=== PATIENT | female | born 1965 | race Caucasian/White ===

== ENCOUNTER 2021-02-12 09:44 | Day surgery (SDC) | payer OTHER, MEDICARE, SELFPAY ==
[2021-02-05 10:41] VITALS: BMI 25.4
--- NOTE | 2021-02-11 12:08 | HO.ANESPROP2 ---
Documented by User: Raquel Alva NP 02/11/21 12:09 HPI - Anesthesia Eval Consult details Narrative: 55yo F for Upper Endoscopy and Colonoscopy *Multiple Med Allergies POTS - stable, no current tx PMFSH Past Medical History Medical History Anxiety Arthritis Asthma Fibromyalgia GERD (gastroesophageal reflux disease) IBS (irritable bowel syndrome) Panic attacks Postural orthostatic tachycardia syndrome Psoriasis Surgical History Surgical History Hx of breast surgery Hx of cholecystectomy Hx of elbow surgery Hx of shoulder surgery Social History Social History Are you a primary reproductive healthcare assistant to a significant other at home: No Do you presently have visiting nurse or other home services: No Patient Tobacco Use Status: Never used Tobacco Use of substances other than those prescribed or required for medical reasons: No Have you been hit, kicked, punched, or otherwise hurt by someone within the past year? If so, by whom?: No Are you DNR?: No Advance Directives: Yes Advance Directives Information Provided: Yes (informational brochure mailed) Advance Directives on File: Yes Advance Directives Date on File: 02/12/21 Recently lost weight without trying: No Eating poorly because of decreased appetite: No Nutrition Risks: No Nutritional Risk Patient : No FDLMP: 2014 Poor oral hygiene: No Meds Allergies Allergy/AdvReac Type Severity Reaction Status Date / Time pregabalin [From LYRICA] Allergy Severe SWELLING Verified 02/12/21 09:51 TONGUE/LIPS prochlorperazine Allergy Severe BODY Verified 02/12/21 09:51 [From COMPAZINE] RIGIDITY amoxicillin [AMOXICILLIN] Allergy Intermediate FLU LIKE Verified 02/12/21 09:51 SYMPTOMS azithromycin [AZITHROMYCIN] Allergy Intermediate STOMACH Verified 02/12/21 09:51 PAINS diclofenac [DICLOFENAC] Allergy Intermediate RXN TO Verified 02/12/21 09:51 CREAM sulfamethoxazole Allergy Intermediate HOT, ITCHY Verified 02/12/21 09:51 [From BACTRIM] trimethoprim [From BACTRIM] Allergy Intermediate HOT, ITCHY Verified 02/12/21 09:51 Home Medications Medication Instructions Recorded Confirmed Last Taken Type albuterol sulfate 90 mcg/actuation 2 puff INHALATION Q4-6H PRN 02/05/21 02/05/21 Unknown History aerosol inhaler (Ventolin HFA) alprazolam 1 mg tablet,extended 1 mg PO TID 02/05/21 02/05/21 02/12/21 History release 24 hr buspirone 10 mg tablet 10 mg PO TID 02/05/21 02/05/21 02/12/21 History qbttgdehqj-ktsqylbykpblm-eudagkcu 1 tab PO Q4-6H PRN 02/05/21 02/05/21 Unknown History 50 mg-325 mg-40 mg tablet Exam Exam Date and Time: February 11, 2021 1208 Height,Weight and Vital Signs: Height 5 ft Weight 58.967 kg Assessment and Plan Assessment Anesthesia Assessment: Chart Reviewed Documented by User: Irma Priest MD 02/12/21 11:18 PMFSH Past Medical History Medical History Anxiety Arthritis Asthma Fibromyalgia GERD (gastroesophageal reflux disease) IBS (irritable bowel syndrome) Panic attacks Postural orthostatic tachycardia syndrome Psoriasis Surgical History Surgical History Hx of breast surgery Hx of cholecystectomy Hx of elbow surgery Hx of shoulder surgery History of Problems with Anesthesia: No Social History Social History Are you a primary reproductive healthcare assistant to a significant other at home: No Do you presently have visiting nurse or other home services: No Patient Tobacco Use Status: Never used Tobacco Use of substances other than those prescribed or required for medical reasons: No Have you been hit, kicked, punched, or otherwise hurt by someone within the past year? If so, by whom?: No Are you DNR?: No Advance Directives: Yes Advance Directives Information Provided: Yes (informational brochure mailed) Advance Directives on File: Yes Advance Directives Date on File: 02/12/21 Recently lost weight without trying: No Eating poorly because of decreased appetite: No Nutrition Risks: No Nutritional Risk Patient : No FDLMP: 2014 Poor oral hygiene: No Meds Allergies Allergy/AdvReac Type Severity Reaction Status Date / Time pregabalin [From LYRICA] Allergy Severe SWELLING Verified 02/12/21 09:51 TONGUE/LIPS prochlorperazine Allergy Severe BODY Verified 02/12/21 09:51 [From COMPAZINE] RIGIDITY amoxicillin [AMOXICILLIN] Allergy Intermediate FLU LIKE Verified 02/12/21 09:51 SYMPTOMS azithromycin [AZITHROMYCIN] Allergy Intermediate STOMACH Verified 02/12/21 09:51 PAINS diclofenac [DICLOFENAC] Allergy Intermediate RXN TO Verified 02/12/21 09:51 CREAM sulfamethoxazole Allergy Intermediate HOT, ITCHY Verified 02/12/21 09:51 [From BACTRIM] trimethoprim [From BACTRIM] Allergy Intermediate HOT, ITCHY Verified 02/12/21 09:51 Home Medications Medication Instructions Recorded Confirmed Last Taken Type albuterol sulfate 90 mcg/actuation 2 puff INHALATION Q4-6H PRN 02/05/21 02/05/21 Unknown History aerosol inhaler (Ventolin HFA) alprazolam 1 mg tablet,extended 1 mg PO TID 02/05/21 02/05/21 02/12/21 History release 24 hr buspirone 10 mg tablet 10 mg PO TID 02/05/21 02/05/21 02/12/21 History akkfezyfiu-xqfwdybssqfrx-xucmziaj 1 tab PO Q4-6H PRN 02/05/21 02/05/21 Unknown History 50 mg-325 mg-40 mg tablet Exam Airway Mallampati Class: I TM Dist: >3cm Neck ROM: Full Loose/Missing/Broken Teeth: No Heart: RRR Lungs: CTA Assessment and Plan Assessment Anesthesia Assessment: Anesthesia Plan Discussed Final Anesthetic Review History of Problems with Anesthesia: No NPO: Yes ASA Class: II Final Preanesthetic Review: Meds/Allgs Chart Reviewed, Consent Obtained/Reviewed and Anes Risks/Benef Reviewed Patient Risk: Low Procedure Risk: Intermediate Anesthetic Plan Anesthetic Plan: MAC: Disposition: Standard PACU
[2021-02-12 10:05] VITALS: BP 134/80; PULSE 105; RESP 16; TEMP 36.6; O2SAT 97
[2021-02-12] MEDS: Lactated Ringers 1,000 ML 100 ML IVCONT (10:36)
[2021-02-12] MEDS: Sodium Phosphate,Mono-Dibasic 133 ML ENEMA PR (10:36)
--- NOTE | 2021-02-12 10:51 | PC.NURSE ---
results from fleets liquid yellow
--- NOTE | 2021-02-12 13:06 | P.BOP_ITS ---
Brief Operative Note Date of Service: 02/12/21 Pre-op diagnosis: GERD, Screening Post-op diagnosis: other (Hiatal hernia, Gastritis, Diverticulosis) Procedure: EGD with biopsies, Colonoscopy to the cecum Surgeon: Merlin Herrera Anesthesia: MAC Was an [employer] used for this Procedure?: No Estimated blood loss (mL): 3.0 Pathology: other (A. Descending duodenum B. Gastric antrum) Condition: stable Disposition: PACU
[2021-02-12 13:10] VITALS: BP 102/70; PULSE 111; RESP 16; TEMP 36.7; O2SAT 97
[2021-02-12 13:25] VITALS: BP 95/58; PULSE 88; RESP 18; O2SAT 98
[2021-02-12 13:30] VITALS: BP 107/70; PULSE 84; RESP 16; O2SAT 100
[2021-02-12 13:34] VITALS: BP 108/68; PULSE 79; RESP 16; TEMP 37.1; O2SAT 100
--- NOTE | 2021-02-13 00:37 | OP_ITS ---
SURGEON: Merlin Herrera MD INDICATIONS: The patient presents for evaluation of gastroesophageal reflux and colorectal cancer screening. Full consent was obtained from her for both procedures, including risks of bleeding and perforation. PREOPERATIVE DIAGNOSIS: POSTOPERATIVE DIAGNOSIS: PROCEDURE PERFORMED: Esophagogastroduodenoscopy with biopsy and colonoscopy to cecum. ESTIMATED BLOOD LOSS: COMPLICATIONS: ANESTHESIA: Monitored anesthesia care. ASSISTANTS: SPECIMENS: PREOPERATIVE DIAGNOSES: Gastroesophageal reflux, colorectal cancer screening. POSTOPERATIVE DIAGNOSES: Gastroesophageal reflux, colorectal cancer screening, small hiatal hernia, mild gastritis, rule out celiac disease, diverticulosis, internal hemorrhoids. DESCRIPTION OF PROCEDURE: The patient was placed in left lateral decubitus position. The Olympus video gastroscope was passed in the posterior oropharynx and upper esophagus under direct vision. The scope was passed slowly into the distal esophagus. The gastroesophageal junction appeared normal at 35 cm. There was no sign of any esophagitis, Fitch's esophagus, nor mass. The scope entered into the stomach. There was a small hiatal hernia. The scope was advanced to pylorus and duodenum was cannulated to the descending portion. The duodenum including the bulb appeared normal without mass or ulceration. Biopsies were obtained from second and third portions of duodenum. The scope was withdrawn back to the stomach. The gastric antrum had some mild changes of erythema and edema, but no erosions nor ulceration. There was good peristalsis. Biopsies were obtained from the gastric antrum. Scope was retroflexed visualizing the proximal stomach carefully, which appeared normal, without any signs of mass or ulceration. Scope was straightened and withdrawn back to the esophagus. The esophageal mucosa appeared normal. The scope was withdrawn from the patient. She was turned around for colonoscopy. The digital rectal exam revealed no abnormalities. The Olympus video pediatric colonoscope was entered into the rectum and advanced easily to the cecum. Once in the cecum, I did identify normal-appearing cecal pouch with appendiceal orifice and a normal-appearing ileocecal valve. There was transillumination of light deep in the right lower quadrant. The entire cecum and ileocecal valve appeared normal. Scope was slowly withdrawn assessing all mucosal surfaces carefully. Preparation was excellent. I did not visualize any sign of polyps, colitis, nor angiodysplasia. There was a mild amount of sigmoid diverticulosis. In the rectum, scope was retroflexed visualizing small internal hemorrhoids, but no other pathology. The rectal mucosa appeared normal. The scope was straightened and withdrawn from the patient. She tolerated both procedures well and was returned to the recovery area in stable condition. IMPRESSION: 1. Small hiatal hernia. 2. Mild gastritis. 3. Rule out celiac disease. 4. Diverticulosis. 5. Internal hemorrhoids. PLAN: The results of biopsy will be checked. Given the negative colonoscopy, I would recommend a followup colonoscopy in 10 years for screening. She was advised to continue her regimen of MiraLAX and Metamucil to try to keep her bowel movements regular. She was advised to continue her wzxu-rhr-qwyzzeo antacids or H2 blockers as needed for any reflux symptoms. She was advised not to use any aspirin and NSAIDs for 1 week. If things are stable, she will see me on a p.r.n. basis. MD BERRY Albright/LIZZETTE / [phone]
== END 2021-02-12 13:57 | disposition home or self-care (01) ==
PROVIDERS: PCP Nurse Practitioner Family; Visit Provider Internal Medicine
PROC: (CPT 45378; principal; 2021-02-12 11:00)
DX: Z12.11 Encounter for screening for malignant neoplasm of colon (principal); K57.30 Diverticulosis of large intestine without perforation or abscess without bleeding; K64.8 Other hemorrhoids; K58.1 Irritable bowel syndrome with constipation; K21.9 Gastro-esophageal reflux disease without esophagitis; K29.50 Unspecified chronic gastritis without bleeding; K44.9 Diaphragmatic hernia without obstruction or gangrene; I49.8 Other specified cardiac arrhythmias; J45.909 Unspecified asthma, uncomplicated; Z79.1 Long term (current) use of non-steroidal anti-inflammatories (NSAID); Z79.899 Other long term (current) drug therapy
CPT/HCPCS: 45378; 43239; 88305; 88342; J3010